=== PATIENT | female | born 1990 | race Caucasian/White ===

== ENCOUNTER 2024-03-14 09:30 | Emergency (ER) | payer OTHER ==
[2024-03-14 09:40] VITALS: BP 119/83; PULSE 85; RESP 16; TEMP 98.3; BMI 27.4
[2024-03-14] MEDS ORDERED: LIDOCAINE 4% PATCH TP ONE (10:38)
[2024-03-14] MEDS ORDERED: ACETAMINOPHEN 500 MG TABLET (FP) ONE (10:39)
[2024-03-14] MEDS: LIDOCAINE 4% PATCH TP ONE (10:52)
[2024-03-14] MEDS: ACETAMINOPHEN 500 MG TABLET (FP) PO ONE (10:52)
== END 2024-03-14 12:05 | disposition home or self-care (01) ==
LOC: JER 09:30
DX: O99.892 Other specified diseases and conditions complicating childbirth (principal); M54.50 Low back pain, unspecified; M54.2 Cervicalgia; Z3A.17 17 weeks gestation of pregnancy; V43.62XA Car passenger injured in collision with other type car in traffic accident, initial encounter
CPT/HCPCS: 99283-25